=== PATIENT | male | born 2000 | race Caucasian/White ===

== ENCOUNTER 2020-01-09 03:28 | Inpatient (IN) ==
[2020-01-09 03:54] LABS: Basophils # (auto) 0.01 K/uL (0-0.2); Basophils % (auto) 0.2 %; Eosinophils # (auto) 0.03 K/uL (0-0.5); Eosinophils % (auto) 0.6 %; Hemoglobin 16.9 g/dL (14.0-18.0); Immature Granulocytes # (auto) 0.05 K/uL (0.00-0.02); Lymphocytes # (auto) 1.59 K/uL (1.2-3.4); Lymphocytes % (auto) 32.4 %; Mean Corpuscular Hemoglobin 31.8 pg (25-34); Mean Corpuscular Volume 88.3 fL (80-100); Mean Platelet Volume 10.9 fL (7.4-10.4); Monocytes # (auto) 0.25 K/uL (0.11-0.59); Monocytes % (auto) 5.1 %; Neutrophils # (auto) 2.98 K/uL (1.4-6.5); Neutrophils % (auto) 60.7 %; Platelet Count 222 K/uL (130-400); RDW Coefficient of Variation 12.5 % (11.5-14.5); RDW Standard Deviation 39.9 fL (36.4-46.3); Red Blood Count 5.32 M/uL (4.7-6.1); White Blood Count 4.91 K/uL (4.8-10.8)
[2020-01-09] MEDS: SODIUM CHLORIDE 0.9% 1000ML 1,000 ML IV SCH ×3 (04:02→04:46)
[2020-01-09] MEDS ORDERED: NovoLIN-R INSULIN PER UNIT CHARGE IV STA (04:15)
[2020-01-09 04:19] LABS: Albumin Globulin Ratio 1.1 (0.9-2); Albumin Level 4.4 gm/dl (3.4-5.0); BUN Creatinine Ratio 8.5 (10-20); Beta-Hydroxybutyrate 12.35 mg/dl (0.2-2.81); Bilirubin,Total 0.7 mg/dl (0.2-1); Calcium 9.2 mg/dl (8.5-10.1); Est GFR (African American) 78.6; Est GFR (Non-African American) 67.8; Globulin 3.9 gm/dl (2.5-4.0); Potassium 4.3 mmol/L (3.5-5.1); Total Protein 8.3 gm/dl (6.4-8.2)
--- NOTE | 2020-01-09 05:26 | History & Physical Report ---
Date of Service January 09, 2020 Assessment & Plan (1) Diabetic ketosis: 19yo C male with Type I DM presenting in DKA. Blood sugar elevated at 635. Anion gap of 14 with normal serum HCO3. Cr mildly elevated at 1.46. +B- hydroxybutyric acid of 12.35. UA pending. No additional complaints at this time. No fever, leukocytosis or evidence of infection. Patient did take his Lantus 27u last evening 01/08/20 around 22:30. He feels that his blood sugar is so elevated because of his EtOH and sugary drink consumption -Admit to medical floor with telemetry monitoring -Check serum osmolarity -Check VBG -Check HgbA1C -BMP, Mg, PO4 and VBG q 4 hours beginning at 08:00 -NSS x 1 additional liter for total of 3L bolus followed by NSS at 125mL/hr x 2 liters -Insulin gtt per protocol -Glycemic management consultation appreciated F/E/N - As above, will give NSS x 1 additional bolus for total of 3 L then maintenance fluids of NSS at 125mL/hr x 2 liters, monitor electrolytes and replete as needed, KCL 40mEq x 1 dose now prior to initiating insulin drip for K of 4.3, NPO for now Ppx - low risk for DVT. Encourage ambulation with assistance as needed. Pt with +EtOH of 195, does not appear to be intoxicated Code - Full Dispo - Admit to medical floor with telemetry monitoring for management of DKA Present on Admission?: Yes Admission and Anticipated Discharge Date Admission Date: 01/09/20 Anticipated date of discharge: 01/09/20 History of Present Illness Chief Complaint: Hyperglycemia, DKA Primary Care Provider: NO PCP Sidney Dinorah is a 19yo C male with history of Type I DM since age 1 presenting with DKA. He reports fairly well controlled blood sugars with last HgbA1C being 8.7 approximately 3 months ago. He takes Lantus 27u qHS and Novolog correctional 1 unit per 12g carbohydrates with meals up to 5 times daily. Patient went out with friends this evening and had a few sugary drinks. He lost track of his friends and was stumbling around. Police found him and checked a blood sugar which was >600 so he was brought to [facility]. He is afebrile, regular tachycardia and hypertensive. No respiratory distress. Adequate oxygenation on room air. He denies any complaints, specifically no fevers/chills/cough/SOB. No chest pain/abdominal pain/nausea/vomiting. He has never been in DKA before. He recently graduated from [employer] with a degree with [employer] (acquired by [employer]. ER Course: Insulin 10u IV, NSS x 2 liter bolus Allergies Allergy/AdvReac Type Severity Reaction Status Date / Time No Known Allergies Allergy Unverified 01/09/20 03:33 Home Medications Home Medications Medication Instructions Recorded Confirmed Type insulin aspart U-100 [Novolog 0 - 50 unit SUBCUT DAILY 01/09/20 01/09/20 History Flexpen U-100 Insulin] insulin glargine [Lantus Solostar 27 unit SUBCUT HS 01/09/20 01/09/20 History U-100 Insulin] Past Med/Surg History Medical History (Updated 01/09/20 @ 05:15 by Magy Monge DO) Type 1 diabetes since age 1 Surgical History (Updated 01/09/20 @ 05:15 by Magy Monge DO) No significant past surgical history Family History (Updated 01/09/20 @ 05:16 by Magy Monge DO) Other No significant family history Social History (Updated 01/09/20 @ 05:16 by Magy Monge DO) Preferred Language: Bangladeshi Feels Safe at Home: Yes Smoking Status: Never smoker Hx Alcohol Use: Yes Alcohol Intake Frequency: Holidays/Special Occasions Hx Substance Use: No Review of Systems Review of Systems: All systems reviewed & are unremarkable except as noted in HPI & below Physical Exam Physical Exam: General: patient resting comfortably, NAD, non-toxic in appearance, AA&O x 4, mildly anxious Skin: warm, dry, intact, no rashes or lesions HEENT: NC/AT, PERRL, EOMI, anicteric sclera, conjunctiva without injection, external ear normal to inspection and nontender, nares patent, dry mucus membranes, dentition intact, no oropharyngeal lesions, neck supple, trachea midline, no LAD, no thyromegaly, no JVD Heart: +S1/S2, regular, tachycardic, no m/r/g Lungs: equal air entry bilaterally, no rales/rhonchi/wheezes Abd: +BS, soft, NT/ND, no masses/organomegaly/ascites Ext: warm, 2+ pulses in UE/LE bilaterally, no clubbing/cyanosis or edema Neuro: nonfocal, patient AA&O x 4, speech intact, no facial droop, moving all extremities on command with equal strength 5/5 Results & Data Results & Data ([facility]) Vital Signs (Past 12 Hours) Vital Signs Temp Pulse Pulse Resp BP BP Pulse Ox 01/09/20 05:04 111 H 20 147/78 H 99 01/09/20 03:59 85 20 179/88 H 99 01/09/20 03:38 36.6 C 117 H 18 179/88 H 100 Laboratory Results Lab Results 01/09/20 01/09/20 01/09/20 Range/Units 03:33 03:34 03:42 WBC (4.8-10.8) K/uL RBC (4.7-6.1) M/uL Hgb (14.0-18.0) g/dL Hct (42-52) % MCV (80-100) fL MCH (25-34) pg MCHC (32-36) g/dL RDW Std Deviation (36.4-46.3) fL RDW Coeff of Alejandra (11.5-14.5) % Plt Count (130-400) K/uL MPV (7.4-10.4) fL Immature Gran % (Auto) % Neut % (Auto) % Lymph % (Auto) % [place] % (Auto) % Eos % (Auto) % Baso % (Auto) % Neut # (Auto) (1.4-6.5) K/uL Lymph # (Auto) (1.2-3.4) K/uL [place] # (Auto) (0.11-0.59) K/uL Eos # (Auto) (0-0.5) K/uL Baso # (Auto) (0-0.2) K/uL Immature Gran # (Auto) (0.00-0.02) K/uL Sodium 139 (136-145) mmol/L Potassium 4.3 (3.5-5.1) mmol/L Chloride 103 (98-107) mmol/L Carbon Dioxide 22 (21-32) mmol/L Anion Gap 14.0 H (3-11) BUN 12 (7-18) mg/dl Creatinine 1.46 H (0.6-1.4) mg/dl Est Cr Clr Drug Dosing 80.0 ml/min Est GFR ( Amer) 78.6 Est GFR (Non-Af Amer) 67.8 BUN/Creatinine Ratio 8.5 L (10-20) Glucose 655 H* (70-99) mg/dl POC Glucose 584 H* > 600 H* (70-99) mg/dl Calcium 9.2 (8.5-10.1) mg/dl Total Bilirubin 0.7 (0.2-1) mg/dl AST 16 (15-37) U/L ALT 33 (12-78) U/L Alkaline Phosphatase 139 H (45-117) U/L Total Protein 8.3 H (6.4-8.2) gm/dl Albumin 4.4 (3.4-5.0) gm/dl Globulin 3.9 (2.5-4.0) gm/dl Albumin/Globulin Ratio 1.1 (0.9-2) Beta-Hydroxybutyric Acd 12.35 H (0.2-2.81) mg/dl Ethyl Alcohol mg/dL (0-3) mg/dl 01/09/20 01/09/20 01/09/20 Range/Units 03:42 03:42 05:01 WBC 4.91 (4.8-10.8) K/uL RBC 5.32 (4.7-6.1) M/uL Hgb 16.9 (14.0-18.0) g/dL Hct 47.0 (42-52) % MCV 88.3 (80-100) fL MCH 31.8 (25-34) pg MCHC 36.0 (32-36) g/dL RDW Std Deviation 39.9 (36.4-46.3) fL RDW Coeff of Alejandra 12.5 (11.5-14.5) % Plt Count 222 (130-400) K/uL MPV 10.9 H (7.4-10.4) fL Immature Gran % (Auto) 1.0 % Neut % (Auto) 60.7 % Lymph % (Auto) 32.4 % [place] % (Auto) 5.1 % Eos % (Auto) 0.6 % Baso % (Auto) 0.2 % Neut # (Auto) 2.98 (1.4-6.5) K/uL Lymph # (Auto) 1.59 (1.2-3.4) K/uL [place] # (Auto) 0.25 (0.11-0.59) K/uL Eos # (Auto) 0.03 (0-0.5) K/uL Baso # (Auto) 0.01 (0-0.2) K/uL Immature Gran # (Auto) 0.05 H (0.00-0.02) K/uL Sodium (136-145) mmol/L Potassium (3.5-5.1) mmol/L Chloride (98-107) mmol/L Carbon Dioxide (21-32) mmol/L Anion Gap (3-11) BUN (7-18) mg/dl Creatinine (0.6-1.4) mg/dl Est Cr Clr Drug Dosing ml/min Est GFR ( Amer) Est GFR (Non-Af Amer) BUN/Creatinine Ratio (10-20) Glucose (70-99) mg/dl POC Glucose 433 H* (70-99) mg/dl Calcium (8.5-10.1) mg/dl Total Bilirubin (0.2-1) mg/dl AST (15-37) U/L ALT (12-78) U/L Alkaline Phosphatase (45-117) U/L Total Protein (6.4-8.2) gm/dl Albumin (3.4-5.0) gm/dl Globulin (2.5-4.0) gm/dl Albumin/Globulin Ratio (0.9-2) Beta-Hydroxybutyric Acd (0.2-2.81) mg/dl Ethyl Alcohol mg/dL 195.0 H (0-3) mg/dl Code Status & VTE Plan Code Status Full code PG Care Time/CCT Total # of Minutes Spent Total Time Spent with Patient: Total time spent is greater than 50% in coordination of care (as documented) at patient's floor/unit and/or counseling patient: Coding Level of Care Code 47139 Initial Inpt Care Lvl 2 Diagnoses Diabetic ketosis E13.10
[2020-01-09] MEDS ORDERED: ONDANSETRON INJ 2 MG/ML 2 ML VIAL IV PRN (07:10)
[2020-01-09] MEDS ORDERED: POTASSIUM CHLORIDE 20 MEQ TABCR PO STA (07:10)
[2020-01-09] MEDS ORDERED: SODIUM CHLORIDE 0.9% 1000ML 1,000 ML IV SCH ×2 (07:10→08:50)
[2020-01-09] MEDS ORDERED: SODIUM CHLORIDE 0.9% 1000ML 1,000 ML IV ONE (07:10)
[2020-01-09] MEDS ORDERED: DKA GOAL RANGE 150-250 mg/dl ONE (07:10)
[2020-01-09] MEDS ORDERED: ACETAMINOPHEN 325 MG TAB PO PRN (07:10)
[2020-01-09] MEDS ORDERED: PHARMACY GLYCEMIC MGMT CONSULT SCH (07:26)
[2020-01-09] MEDS ORDERED: INSULIN REGULAR 250 UNITS in SODIUM CHLORIDE 0.9% 247.5 ML IV SCH (07:45)
[2020-01-09 08:25] LABS: Appearance Urine Clear (Clear); Bacteria Urine Automated Negative (Negative); Bilirubin Urine Negative (Negative); Blood Urine 1+ (Negative); Cast Urine Automated 0 /lpf (0-5); Color Urine Yellow; Epithelial Cell Urine Auto 0-5 /lpf (0-5); Glucose Urine UA 3+ (Negative); Ketones Urine 1+ (Negative); Leukocyte Esterase Urine Negative (Negative); Nitrite Urine Negative (Negative); Protein Urine Negative (Negative); RBC Urine Automated 0-4 /hpf (0-4); Specific Gravity Urine 1.034 (1.000-1.030); Urobilinogen Urine Negative (Negative); WBC Urine Automated 0 /hpf (0-5)
[2020-01-09] MEDS: INSULIN ASPART 100 UNITS/ML 3 ML PEN SC SCH ×5 (08:39→17:36)
[2020-01-09 09:20] LABS: Estimated Average Glucose 255 mg/dl; Hemoglobin A1C 10.5 % (4.5-5.6)
[2020-01-09 09:24] LABS: BUN Creatinine Ratio 10.1 (10-20); Calcium 8.2 mg/dl (8.5-10.1); Creatinine Clr Calc Pharmacy 121.7 ml/min; Est GFR (African American) 130.4; Est GFR (Non-African American) 112.5; Magnesium 1.8 mg/dl (1.8-2.4); Phosphorus 2.6 mg/dl (2.5-4.9); Potassium 3.8 mmol/L (3.5-5.1)
[2020-01-09 09:35] LABS: Beta-Hydroxybutyrate 19.43 mg/dl (0.2-2.81)
[2020-01-09] MEDS: PENDING 1/2NSS+20mEq KCL IVF SCH ×2 (09:41→09:42)
[2020-01-09] MEDS ORDERED: POTASSIUM CHLORIDE 20 MEQ in SODIUM CHLORIDE 0.45 % 1,000 ML IV SCH (10:00)
[2020-01-09] MEDS ORDERED: SODIUM CHLOR 0.45% + 20MEQ KCL 20 MEQ/1,000 ML BAG IV SCH (10:00)
[2020-01-09 12:40] LABS: BUN Creatinine Ratio 10.2 (10-20); Calcium 8.2 mg/dl (8.5-10.1); Creatinine Clr Calc Pharmacy 140.8 ml/min; Est GFR (African American) 145.8; Est GFR (Non-African American) 125.8; Magnesium 1.9 mg/dl (1.8-2.4); Potassium 3.7 mmol/L (3.5-5.1)
[2020-01-09 12:41] LABS: Phosphorus 2.3 mg/dl (2.5-4.9)
[2020-01-09] MEDS ORDERED: D5W AND 1/2NSS + 20MEQ KCL 20 MEQ/1,000 ML BAG IV SCH (13:00)
[2020-01-09] MEDS ORDERED: GLUCAGON FOR INJ 1 MG VIAL IM PRN (13:15)
[2020-01-09] MEDS ORDERED: GLUCOSE 40% GEL 15 GM TUBE PO PRN (13:15)
[2020-01-09] MEDS ORDERED: GLUCOSE 10 TABS/TUBE PO PRN (13:15)
[2020-01-09] MEDS ORDERED: CARBOHYDRATES FOR HYPOGLYCEMIA PO PRN (13:15)
[2020-01-09] MEDS ORDERED: DEXTROSE 50% 50 ML SYRINGE IV PRN (13:15)
[2020-01-09] MEDS: PENDING D5 1/2NS+20mEq KCL IVF SCH ×2 (13:17→13:19)
[2020-01-09] MEDS ORDERED: INSULIN GLARGINE SOLOSTAR 100 UNITS/ML 3 ML PEN SC ONE (13:30)
--- NOTE | 2020-01-09 14:16 | Pharmacy Report ---
Glycemic Control Consultation - Date of Service January 09, 2020 - Scope Scope: Glycemic Pharmacist consulted for glycemic control and to write orders per [facility] inpatient glycemic control protocol. - Objective Weight: 72.2 kg Accuchecks BSG (last 24hrs): 01/09/20 01/09/20 01/09/20 03:33 03:34 03:42 Glucose 655 H* POC Glucose 584 H* > 600 H* 01/09/20 01/09/20 01/09/20 05:01 06:29 07:36 Glucose POC Glucose 433 H* 335 H* 364 H* 01/09/20 01/09/20 01/09/20 08:32 08:33 09:30 Glucose 323 H* POC Glucose 303 H* 196 H 01/09/20 01/09/20 01/09/20 10:32 11:24 11:54 Glucose 130 H POC Glucose 205 H 140 H 01/09/20 01/09/20 12:26 13:39 Glucose POC Glucose 145 H 97 Laboratory Data (last 24hrs): 01/09/20 01/09/20 01/09/20 03:42 08:32 08:32 Potassium 4.3 3.8 Carbon Dioxide 22 21 Anion Gap 14.0 H 11.0 Creatinine 1.46 H 0.96 D Est Cr Clr Drug Dosing 80.0 121.7 Osmolality 327 H Beta-Hydroxybutyric Acd 12.35 H 19.43 H 01/09/20 11:54 Potassium 3.7 Carbon Dioxide 29 Anion Gap 3.0 Creatinine 0.83 Est Cr Clr Drug Dosing 140.8 Osmolality Beta-Hydroxybutyric Acd HbA1c: Hemoglobin A1c 10.5 % (4.5-5.6) H 01/09/20 08:32 - Recent Pertinent Medications Outpatient Anti-diabetic Regimen: * Lantus 27 units SQ HS * Novolog CF 1:12, CR 1:5 * A1c = ordered Risk Factors for Insulin Resistance: * EtOH consumption and dehydration - Assessment & Plan Assessment & Plan: ASSESSMENT: * 19yo male with Type I DM since age 1 presenting in DKA d/t EtOH intake, dehydration. Blood sugar elevated at 635mg/dl. Anion gap of 14 with normal serum HCO3. Cr mildly elevated at 1.46. +B-hydroxybutyric acid of 12.35. * Patient given 10 units IV insulin bolus, then started on insulin drip at 7.5unit/hr (0.1units/kg/hr). * Blood sugars came down into range and anion gap closed, OK to stop drip and overlap with small dose of basal. 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 * Patient also now on fluids with dextrose and starting liquid diet. * Will utilize home CF and CR at this time. * Anticipate discharge this evening if diet tolerated. PLAN FOR INPATIENT GLYCEMIC CONTROL: * IV insulin infusion * Started at 7.5 units/hr at 0800, titrated down per calculator, now on hold, and to discontinue. * Basal insulin * Lantus 10 units SQ x1 dose at 1300, then resume home dose 27 units SQ HS * Bolus insulin * NovoLog per scale ACHS or Q6hrs while NPO * Goal Range: Low 110 mg/dL - High 140 mg/dL * Correction Factor: 12 mg/dL/unit * Nutritional / Prandial insulin per carb ratio of 1 unit per 5 grams CHO consumed * Please note that the plan above was derived based on current level of insulin resistance and hospital stress. These recommendations are appropriate for inpatient admission only. Plan of care upon discharge will need to be reassessed to avoid potential outpatient hypo/hyperglycemia. Thank you.
[2020-01-09 16:40] LABS: BUN Creatinine Ratio 9.6 (10-20); Blood Urea Nitrogen 7 mg/dl (7-18); Calcium 8.4 mg/dl (8.5-10.1); Carbon Dioxide 24 mmol/L (21-32); Chloride 108 mmol/L (98-107); Creatinine Clr Calc Pharmacy 155.8 ml/min; Est GFR (African American) > 150.0; Est GFR (Non-African American) 131.1; Glucose 200 mg/dl (70-99); Magnesium 1.9 mg/dl (1.8-2.4); Sodium 139 mmol/L (136-145)
--- NOTE | 2020-01-09 17:36 | Discharge Summary ---
Date of Service January 09, 2020 Admission HPI Per Admitting Provider Sidney Copeland is a 19yo C male with history of Type I DM since age 1 presenting with DKA. He reports fairly well controlled blood sugars with last HgbA1C being 8.7 approximately 3 months ago. He takes Lantus 27u qHS and Novolog correctional 1 unit per 12g carbohydrates with meals up to 5 times daily. Patient went out with friends this evening and had a few sugary drinks. He lost track of his friends and was stumbling around. Police found him and checked a blood sugar which was >600 so he was brought to [facility]. He is afebrile, regular tachycardia and hypertensive. No respiratory distress. Adequate oxygenation on room air. He denies any complaints, specifically no fevers/chills/cough/SOB. No chest pain/abdominal pain/nausea/vomiting. He has never been in DKA before. He recently graduated from [employer] with a degree with [employer]roleum[employer]. ER Course: Insulin 10u IV, NSS x 2 liter bolus Admission Exam Per Admitting Provider General: patient resting comfortably, NAD, non-toxic in appearance, AA&O x 4, mildly anxious Skin: warm, dry, intact, no rashes or lesions HEENT: NC/AT, PERRL, EOMI, anicteric sclera, conjunctiva without injection, external ear normal to inspection and nontender, nares patent, dry mucus membranes, dentition intact, no oropharyngeal lesions, neck supple, trachea midline, no LAD, no thyromegaly, no JVD Heart: +S1/S2, regular, tachycardic, no m/r/g Lungs: equal air entry bilaterally, no rales/rhonchi/wheezes Abd: +BS, soft, NT/ND, no masses/organomegaly/ascites Ext: warm, 2+ pulses in UE/LE bilaterally, no clubbing/cyanosis or edema Neuro: nonfocal, patient AA&O x 4, speech intact, no facial droop, moving all extremities on command with equal strength 5/5 Principal Diagnosis DKA Discharge Exam Constitutional WD/WN, vitals as above Eyes PERRL, conjunctivae normal, anicteric sclerae Neck trachea midline, no thyromegaly Respiratory normal respiratory effort, lungs clear to auscultation Cardiovascular RRR, no murmur, no edema Gastrointestinal (Abdomen) normal bowel sounds, soft, nontender, no hepatosplenomegaly Musculoskeletal no cyanosis or clubbing, extremities motor strength 5/5 Psychiatric A+Ox3, euthymic affect Discharge Data Allergies Allergy/AdvReac Type Severity Reaction Status Date / Time No Known Allergies Allergy Unverified 01/09/20 03:33 Consultations 01/09/20 04:51 ED Decision to Admit Stat Hospital Course (1) Diabetic ketosis: 19yo C male with Type I DM presenting in DKA. Blood sugar elevated at 635. Anion gap of 14 with normal serum HCO3. Cr mildly elevated at 1.46. +B- hydroxybutyric acid of 19.43. No fever, leukocytosis or evidence of infection. Patient did take his Lantus 27u evening of 01/08/20 around 22:30. He feels that his blood sugar is so elevated because of his EtOH and sugary drink consumption Diabetic Ketosis -Admitted to medical floor with telemetry monitoring -BMP, Mg, PO4 and VBG q 4 hours beginning at 08:00 -NSS x 1 additional liter for total of 3L bolus followed by NSS at 125mL/hr x 2 liters -Insulin gtt per protocol -Glycemic management consultation was appreciated. -Patient was transitioned from Insulin drip to subq insulin around 8 hours after admission. -Patient was adequately rehydrated per DKA protocol with initial 3L NSS bolus followed by 200ml/hr NSS+KCl and later dextrose containing fluids after BS <200 -Patient had a minimum gap of 14 without hyperchloremia which both resolved with hydration rapidly. -Creatinine improved to 0.75 after IV fluid hydration. -Potassium was repleted initially with 40meq KCl -Patient was advanced from a full liquid to regular DM1 diet prior to discharge which he tolerated well. -He did receive 10u Lantus while inpatient, instructed patient to only take 17u tonight after discharge to cover for his 27u total. -Hgb A1c was 10.5 -Patient to resume home insulin regiment after discharge. Total Time Total Time Spent Total Time Spent (In Minutes): <30 Discharge Plan Discharge Items Patient Disposition: Home - Self-Care Reason For Visit: DKA Discharge Diagnosis: DKA Activity: Resume your previous activity Non-emergency contact: Primary Care Provider Call non-emergency contact if: you have any medication questions and your symptoms worsen Follow-up/Referrals: PCP,NO [Primary Care Provider] - Diet: Carb Count or DM1 Addtl Attending Provider Instructions: Mr. Copeland, It was our pleasure caring for you at [facility] on 01/09/20 for concerns of a significantly elevated blood glucose level. This was diagnosed as Diabetic Ketoacidosis or DKA, a condition that occurs most often in Type 1 Diabetics. As we discussed at length this morning, it was likely due to the consumption of high carb containing drinks you had the night prior/morning of and not having your short acting insulin to cover with at the time. When in DKA, your body becomes profusely dehydrated and can cause further symptoms of Nausea, Vomiting, and if severe enough organ damage. In your case today, your symptoms were relatively mild and you recovered quickly with appropriate fluid hydration and insulin management. Again, it is likely that this primarily occurred due to the high intake of carbs without proper coverage. You can continue your regular insulin regiment upon discharge without need for adjustments. Should in the future you choose to have an increased intake of carbohydrates again, it would be recommended that you appropriately cover for them with your short acting insulin. If you have any further questions or concerns about your health after discharge, please feel free to reach out to the hospital or your home primary care physician. -Please schedule a follow up with your PCP or sales manager [place] in the next week. -You received 10u of lantus today; please adjust to 17u for tonight alone. Pending Studies at Discharge: No Stand-Alone Forms: My [facility] Medications and DC Order Prescriptions: Continued insulin aspart U-100 [Novolog Flexpen U-100 Insulin] 100 unit/mL (3 mL) insulin pen 0 - 50 unit SUBCUT DAILY RF: 0 Lantus Solostar U-100 Insulin 100 unit/mL (3 mL) insulin pen 27 unit SUBCUT HS RF: 0 Discharge Orders: Discharge Order (Routine); Ordered 01/09/20 Ordered By: Mukesh Jiang/Other Patient Handouts: Diabetes and Drinking Alcohol, Diabetic Ketoacidosis Admission Data Admit Date/Time: 01/09/20 05:08 Attending Provider: Jimmy Renteria Admit Provider: Magy Monge Primary Care Provider: PCP,NO Other Providers: Magy Monge Other Interventions: Discharge Summary Assessment (RN) Last Done: 01/09/20 17:58 DC Date/Time DO NOT enter until pt leaves facility: 01/09/20 18:37 Supervising Physician Co-Signing Physician Notes I personally examined the patient and verified all moody points of history and exam, discussed case, and agree with decision making with Dr Cardenas. feeling better, labs improved. later ate well and sugars still improved. really wants to go home vitals noted nad heent nc at mmm breathing unlabored no accessory muscles good effort skin no rashes no pallor or icterus DKA - fortunately found by police quite early in the process, brought to ER quickly - quick turnaround without significant lasting metabolic disarray. anion gap good, JOSE quickly resolved. stable for home. otherwise as above Resident Activity Tracking Resident Involvement: Resident Care Provided Care Provided: Adult Hospital Medicine
--- NOTE | 2020-01-09 18:53 | Billing Data ---
Date of Service January 09, 2020 Coding Level of Care Code D/C Day Management <30 mins
[2020-01-09] MEDS ORDERED: INSULIN GLARGINE SOLOSTAR 100 UNITS/ML 3 ML PEN SC SCH (21:00)
--- NOTE | 2020-01-09 21:46 | Emergency Department Note ---
History of Present Illness General Chief complaint: Alcohol Intoxication Stated complaint: ALCOHOL/HYPERGLYCEMIA Time Seen by Provider: 01/09/20 03:29 History of Present Illness This is a 19-year-old male presenting to the emergency department for evaluation of hyperglycemia and alcohol intoxication. The patient lives in the [facility] and returned to the [facility] this weekend for arts Festival drinking, despite Arts festival being canceled. The patient states that he was drinking this evening, and lost track of his friends. He may have fallen asleep at a bus stop, but was ultimately found by police stumbling by himself on the sidewalk. He was not felt to be overtly obtunded, but was unable to get in contact with a sober ride. EMS did arrive on scene to evaluate the patient, and fingerstick glucose was performed and was "HIGH". He is a type I diabetic since the age of 31 years old, and states that he did take insulin before going out to drink tonight. He does not report pain or discomfort. He does not have other complaints and is otherwise cooperative. Home Medications Home Medications Medication Instructions Recorded Confirmed Type Lantus Solostar U-100 Insulin 27 unit SUBCUT HS 01/09/20 01/09/20 History insulin aspart U-100 [Novolog 0 - 50 unit SUBCUT DAILY 01/09/20 01/09/20 History Flexpen U-100 Insulin] Allergies Allergy/AdvReac Type Severity Reaction Status Date / Time No Known Allergies Allergy Unverified 01/09/20 03:33 Past Med/Surg History Medical History Type 1 diabetes since age 1 Surgical History No significant past surgical history Family History (Updated 01/09/20 @ 05:16 by Magy Monge DO) Other No significant family history Social History (Updated 01/09/20 @ 05:16 by Magy Monge DO) Preferred Language: Tajik Communication Ability: Effective [employer]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 Beliefs That Will Affect Care: None Current Living Situation: Parent and Family Feels Safe at Home: Yes Smoking Status: Never smoker Hx Alcohol Use: Yes Alcohol type: beer and hard liquor Alcohol Intake Frequency: Holidays/Special Occasions Hx Substance Use: No Review of Systems A total of 10 systems reviewed and were otherwise negative Physical Exam Vital Signs Vital Signs - 24 hr 01/09/20 03:38 01/09/20 03:59 01/09/20 05:04 Temperature 36.6 C Temperature Source Oral Pulse Rate 117 H Pulse Rate [Bilateral Apical] 85 111 H Respiratory Rate 18 20 20 Respiratory Depth Normal Blood Pressure 179/88 H Blood Pressure [Left Arm] 179/88 H 147/78 H Blood Pressure Mean 118 Blood Pressure Mean [Left Arm] 118 101 Pulse Oximetry 100 99 99 Oxygen Delivery Method Room Air Room Air Room Air Sepsis Recent Fever Within 48 Hours No Sepsis New/Unexplained Change in Mental Status No Sepsis Action Taken by Nursing No Action Required VITALS: Vitals are noted on the nurse's note and reviewed by myself. Vital signs stable. GENERAL: Very pleasant but mildly intoxicated male who is cooperative with the examination. HEAD: Normocephalic atraumatic. EARS: External ear normal. External auditory canals clear, tympanic membranes pearly ruiz without erythema or effusion bilaterally. EYES: Pupils equal round and reactive to light and accommodation. Conjunctivae without injection, sclerae without icterus. Extraocular movements intact. NOSE: Patent, turbinates without inflammation or discharge. MOUTH: Mucous membranes moist. Tonsils are not enlarged. Pharynx without erythema, blood, or exudate. Uvula midline. Airway patent. NECK: Supple without nuchal rigidity. No lymphadenopathy. No thyromegaly. Cervical spine is nontender. HEART: Regular rate and rhythm without murmurs gallops or rubs. LUNGS: Clear to auscultation bilaterally without wheezes, rales or rhonchi. No retractions or accessory muscle use. ABDOMEN: Positive normal bowel sounds x 4. Soft, nontender, without masses or organomegaly. No guarding or rebound tenderness. MUSCULOSKELETAL: No muscle atrophy, erythema, or edema noted. Full range of motion in all extremities. NEURO: Patient was alert and oriented to person place and time. CN II through XII grossly intact. Course Administered Medications Discontinued Medications Sodium Chloride (Nss 1000ml) 1,000 mls @ 999 mls/hr IV .Q1H1M DALIA Stop: 01/09/20 05:34 Last Infusion: 01/09/20 05:39 Dose: 0 mls/hr Documented by: [id number] Admin: 01/09/20 04:46 Dose: 999 mls/hr Documented by: [id number] Infusion: 01/09/20 04:44 Dose: 999 mls/hr Documented by: [id number] Admin: 01/09/20 04:02 Dose: 999 mls/hr Documented by: [id number] Sodium Chloride (Nss 1000ml) 1,000 mls @ 999 mls/hr IV .Q1H1M ONE Stop: 01/09/20 08:10 Last Infusion: 01/09/20 08:52 Dose: 0 mls/hr Documented by: [id number] Admin: 01/09/20 07:43 Dose: 999 mls/hr Documented by: [id number] Insulin Human Regular 250 (units/ Sodium Chloride) 250 mls @ 3.2 mls/hr IV .Q24H DALIA; Protocol Stop: 01/09/20 15:30 Last Titration: 01/09/20 14:02 Dose: 0 units/hr, 0 mls/hr Documented by: [id number] Cosigned by: [id number] Titration: 01/09/20 13:30 Dose: 0 units/hr, 0 mls/hr Documented by: [id number] Cosigned by: [id number] Titration: 01/09/20 12:00 Dose: 3.2 units/hr, 3.2 mls/hr Documented by: [id number] Cosigned by: [id number] Titration: 01/09/20 11:30 Dose: 0 units/hr, 0 mls/hr Documented by: [id number] Cosigned by: [id number] Titration: 01/09/20 10:38 Dose: 5.4 units/hr, 5.4 mls/hr Documented by: [id number] Cosigned by: [id number] Titration: 01/09/20 10:00 Dose: 4.5 units/hr, 4.5 mls/hr Documented by: [id number] Cosigned by: [id number] Titration: 01/09/20 09:34 Dose: 0 units/hr, 0 mls/hr Documented by: [id number] Cosigned by: [id number] Admin: 01/09/20 07:54 Dose: 7.5 units/hr, 7.5 mls/hr Documented by: [id number] Cosigned by: [id number] Sodium Chloride (Nss 1000ml) 1,000 mls @ 200 mls/hr IV .Q5H DALIA Stop: 01/09/20 17:09 Last Infusion: 01/09/20 09:46 Dose: 0 mls/hr Documented by: [id number] Admin: 01/09/20 08:50 Dose: 200 mls/hr Documented by: [id number] Sodium Chloride (Nss 1000ml) 1,000 mls @ 999 mls/hr IV .Q1H1M DALIA Stop: 01/09/20 09:50 Last Admin: 01/09/20 08:51 Dose: Not Given Documented by: [id number] Potassium Chloride/Sodium Chloride (1/2 Nss + 20meq Kcl 1000ml) 20 meq in 1,000 mls @ 200 mls/hr IV .Q5H DALIA Stop: 02/08/20 09:59 Last Infusion: 01/09/20 13:20 Dose: 0 mls/hr Documented by: [id number] Admin: 01/09/20 10:25 Dose: 200 mls/hr Documented by: [id number] Potassium Chloride/Dextrose/Sod Cl (D5w And 1/2nss + 20meq Kcl) 20 meq in 1,000 mls @ 125 mls/hr IV .Q8H DALIA Stop: 02/08/20 12:59 Last Admin: 01/09/20 13:58 Dose: 125 mls/hr Documented by: [id number] Insulin Aspart (Novolog Flexpen) 0 units SC [facility] Stop: 02/08/20 07:29 Last Admin: 01/09/20 12:21 Dose: Not Given Documented by: [id number] Cosigned by: [id number] Admin: 01/09/20 08:39 Dose: Not Given Documented by: [id number] Cosigned by: [id number] Insulin Aspart (Novolog Flexpen) 0 units SC [facility]; Protocol Stop: 02/08/20 13:29 Last Admin: 01/09/20 17:36 Dose: 15 units Documented by: [id number] Cosigned by: [id number] Admin: 01/09/20 13:58 Dose: Not Given Documented by: [id number] Cosigned by: [id number] Insulin Glargine (Lantus Solostar Pen) 10 units SC ONE ONE; Protocol Stop: 01/09/20 13:31 Last Admin: 01/09/20 13:58 Dose: 10 units Documented by: [id number] Cosigned by: [id number] Insulin Human Regular (Novolin R U-100 Per Unit) 10 units IV NOW STA Stop: 01/09/20 04:16 Last Admin: 01/09/20 04:26 Dose: 10 units Documented by: [id number] Cosigned by: [id number] Miscellaneous (Pending 1/2nss+20meq Kcl Ivf) 1 ea N/A Q2H DALIA Stop: 01/12/20 07:09 Last Admin: 01/09/20 09:42 Dose: Not Given Documented by: [id number] Admin: 01/09/20 09:41 Dose: Not Given Documented by: [id number] Miscellaneous (Pending D5 1/2ns+20meq Kcl Ivf) 1 ea N/A Q2H DALIA Stop: 01/12/20 07:09 Last Admin: 01/09/20 13:19 Dose: Not Given Documented by: [id number] Admin: 01/09/20 13:17 Dose: Not Given Documented by: [id number] Admin: 01/09/20 13:17 Dose: Not Given Documented by: [id number] Miscellaneous (Insulin Protocol Dka Goal Range) 1 ea N/A ONE ONE Stop: 01/09/20 07:11 Last Admin: 01/09/20 07:56 Dose: 1 ea Documented by: [id number] Potassium Chloride (Klor-Con M20) 40 meq PO NOW STA Stop: 01/09/20 07:11 Last Admin: 01/09/20 07:43 Dose: 40 meq Documented by: [id number] Medical Decision Making Differential Diagnosis Differential diagnosis: Etiologies such as alcohol intoxication, hyperglycemia, DKA, toxicological, infection, hypoglycemia, electrolyte abnormalities, cardiac sources, intracerebr al event, neurologic, as well as others were entertained. Laboratory Data Result diagrams: 01/09/20 03:42 01/09/20 15:54 Lab Results 01/09/20 01/09/20 01/09/20 Range/Units 03:33 03:34 03:42 WBC (4.8-10.8) K/uL RBC (4.7-6.1) M/uL Hgb (14.0-18.0) g/dL Hct (42-52) % MCV (80-100) fL MCH (25-34) pg MCHC (32-36) g/dL RDW Std Deviation (36.4-46.3) fL RDW Coeff of Alejandra (11.5-14.5) % Plt Count (130-400) K/uL MPV (7.4-10.4) fL Immature Gran % (Auto) % Neut % (Auto) % Lymph % (Auto) % Bollinger % (Auto) % Eos % (Auto) % Baso % (Auto) % Neut # (Auto) (1.4-6.5) K/uL Lymph # (Auto) (1.2-3.4) K/uL Bollinger # (Auto) (0.11-0.59) K/uL Eos # (Auto) (0-0.5) K/uL Baso # (Auto) (0-0.2) K/uL Immature Gran # (Auto) (0.00-0.02) K/uL Sodium 139 (136-145) mmol/L Potassium 4.3 (3.5-5.1) mmol/L Chloride 103 (98-107) mmol/L Carbon Dioxide 22 (21-32) mmol/L Anion Gap 14.0 H (3-11) BUN 12 (7-18) mg/dl Creatinine 1.46 H (0.6-1.4) mg/dl Est Cr Clr Drug Dosing 80.0 ml/min Est GFR ( Amer) 78.6 Est GFR (Non-Af Amer) 67.8 BUN/Creatinine Ratio 8.5 L (10-20) Glucose 655 H* (70-99) mg/dl POC Glucose 584 H* > 600 H* (70-99) mg/dl Calcium 9.2 (8.5-10.1) mg/dl Total Bilirubin 0.7 (0.2-1) mg/dl AST 16 (15-37) U/L ALT 33 (12-78) U/L Alkaline Phosphatase 139 H (45-117) U/L Total Protein 8.3 H (6.4-8.2) gm/dl Albumin 4.4 (3.4-5.0) gm/dl Globulin 3.9 (2.5-4.0) gm/dl Albumin/Globulin Ratio 1.1 (0.9-2) Beta-Hydroxybutyric Acd 12.35 H (0.2-2.81) mg/dl Ethyl Alcohol mg/dL (0-3) mg/dl 01/09/20 01/09/20 01/09/20 Range/Units 03:42 03:42 05:01 WBC 4.91 (4.8-10.8) K/uL RBC 5.32 (4.7-6.1) M/uL Hgb 16.9 (14.0-18.0) g/dL Hct 47.0 (42-52) % MCV 88.3 (80-100) fL MCH 31.8 (25-34) pg MCHC 36.0 (32-36) g/dL RDW Std Deviation 39.9 (36.4-46.3) fL RDW Coeff of Alejandra 12.5 (11.5-14.5) % Plt Count 222 (130-400) K/uL MPV 10.9 H (7.4-10.4) fL Immature Gran % (Auto) 1.0 % Neut % (Auto) 60.7 % Lymph % (Auto) 32.4 % Bollinger % (Auto) 5.1 % Eos % (Auto) 0.6 % Baso % (Auto) 0.2 % Neut # (Auto) 2.98 (1.4-6.5) K/uL Lymph # (Auto) 1.59 (1.2-3.4) K/uL Bollinger # (Auto) 0.25 (0.11-0.59) K/uL Eos # (Auto) 0.03 (0-0.5) K/uL Baso # (Auto) 0.01 (0-0.2) K/uL Immature Gran # (Auto) 0.05 H (0.00-0.02) K/uL Sodium (136-145) mmol/L Potassium (3.5-5.1) mmol/L Chloride (98-107) mmol/L Carbon Dioxide (21-32) mmol/L Anion Gap (3-11) BUN (7-18) mg/dl Creatinine (0.6-1.4) mg/dl Est Cr Clr Drug Dosing ml/min Est GFR ( Amer) Est GFR (Non-Af Amer) BUN/Creatinine Ratio (10-20) Glucose (70-99) mg/dl POC Glucose 433 H* (70-99) mg/dl Calcium (8.5-10.1) mg/dl Total Bilirubin (0.2-1) mg/dl AST (15-37) U/L ALT (12-78) U/L Alkaline Phosphatase (45-117) U/L Total Protein (6.4-8.2) gm/dl Albumin (3.4-5.0) gm/dl Globulin (2.5-4.0) gm/dl Albumin/Globulin Ratio (0.9-2) Beta-Hydroxybutyric Acd (0.2-2.81) mg/dl Ethyl Alcohol mg/dL 195.0 H (0-3) mg/dl MDM Narrative Physical exam and history were performed. Nursing notes, EMR, and Medication List were personally reviewed. Patient appears to have been drinking this evening, and ultimately became hyperglycemic. On examination the patient is slightly intoxicated appearing, but is very pleasant. Fingerstick glucose was performed here in the department, and was greater than 600. IV access was established and labs were obtained. The patient was initially bolused with 2 L normal saline and given 10 units IV regular insulin. An order was placed for continuous cardiac monitoring. The monitor shows a rate of 96 with normal sinus rhythm. The patient's blood work is as above and was reviewed. He does not have a significant elevated white blood cell count or gross anemia. Lab glucose is 655 with a notably elevated beta hydroxy of 12. He does have an increased anion gap at 14. Transaminases are not diagnostic. Urine is with 3+ glucose and some ketones. Alcohol is 195. Overall the patient does not seem well for discharge home. There is high concern for DKA, likely from his drinking tonight and general nonadherence with his insulin. The case was discussed with the on-call hospitalist, Dr. Monge, who agreed to evaluate the patient here in the ER. Please see Dr. Monge's dictation for further patient course, plan, and disposition. The chart was completed utilizing Global Active Speech Voice Recognition Software. Grammatical errors, random word insertions, pronoun errors, and incomplete sentences are an occasional consequence of this system due to software limitations, ambient noise, and hardware issues. Any formal questions or concerns about the content, text, or information contained within the body of this dictation should be directly addressed to the provider for clarification. . Impression & Plan Acute hyperglycemia, Diabetic ketosis, Alcohol use with intoxication Discharge Plan Visit Data *Final* Discharge Date/Time: 01/09/20 06:37 Chief Complaint: Alcohol Intoxication Stated Complaint: ALCOHOL/HYPERGLYCEMIA ED Provider: Regis Hwang ED Midlevel Provider: Mikhail Rodrigez Discharge Problem: Acute hyperglycemia, Diabetic ketosis, Alcohol use with intoxication Patient Disposition: Admitted As Inpatient Discharge Instructions Interventions: ED Discharge Assessment Last Done: 01/09/20 06:37
--- NOTE | 2020-01-15 11:48 | Coding Query ---
CODING QUERY To promote full compliance with coding requirements relating to patient care, provider participation is requested in all cases of medical record coder uncertainty. Please assist us with the question(s) below: Please clarify the meaning of JOSE (documented on the Discharge Summary). JOSE is not a valid abbreviation. Thank you. (x ) Acute Kidney Injury ( ) Acute Kidney Insufficiency ( ) Other (Specify): Principal Diagnosis: "that condition established after study, to be chiefly responsible for occasioning the admission of the patient to the hospital for care." Co-Existing Principal Diagnosis: "when two or more diagnoses equally meet the criteria for principal diagnosis as determined by the circumstances of admission, diagnostic work up, and/or therapy provided, and the Alphabetic Index, Tabular List, or another coding guideline does not provide sequencing direction, any one of the diagnoses may be sequenced first." "When the physician has documented what appears to be a current diagnosis in the body of the record, but has not included the diagnosis in the final diagnostic statement, the physician should be asked whether the diagnosis should be added." (Source Coding [facility] 2 QTR90. p3-4) CLEVE
== END 2020-01-09 18:37 | disposition home or self-care (01) | DRG 638 ==
LOC: ED 03:28 → SUATTDRO 05:08 → 2S 05:08